=== PATIENT | male | born 1950 | race Two or more races ===

== ENCOUNTER 2016-04-10 10:08 | Inpatient (IN) | payer MEDICAID ==
[~2016-04-10] VITALS: Ht 162.6 cm; Wt 72.6 kg
[~2016-04-10 10:08] MED LIST: ARTANE2 MG ORAL; BACITRACIN1 APPLIC TOPIC; BACTRIM-DS1 EA ORAL; CLINDAMYCIN HC150 MG ORAL; ECOTRIN81 MG ORAL; FUROSEMIDE40 MG ORAL; HYDROCODON-ACE1 EA15 ORAL; LACTULOSE20 GM/301 ORAL; LEVAQUIN500 MG ORAL; NKM; SINEMET 10/100 T1 EA ORAL; TRAMADOL HCL50 MG ORAL; TRIHEXYPHENIDYL2 MG ORAL; TYLENOL650 MG/20. ORAL
[2016-04-10] MEDS ORDERED: Norco 5mg/325mg tab ORAL ONE (11:00)
--- NOTE | 2016-04-10 11:04 | Emergency Room Report ---
History of Present Illness General Chief Complaint: Pain Source: Patient, EMS Present Illness HPI Patient presents with complaint of pain in his legs, not relieved with normal medications. The patient is a history of Parkinson's and takes carbidopa, levodopa, aspirin, trihexyphenidyl daily. He states he doesn't have a primary care doctor, but is been to [facility] and this facility in the past, he knows doctors Bonniedanielavalentin by name, he he denies falls, but he denies burning pain in bilateral legs. He presents with discharge paperwork from a [facility] facility which she was recently discharged with, and has prescriptions which she has not filled of the above-mentioned medications. Allergies: Coded Allergies: No Known Allergies (Unverified , 06/28/14) Patient History Past Medical History: see triage record, old chart reviewed, other - Parkinson' s Social History: Denies: alcohol use, drug use, smoking Immunizations: UTD Reviewed Nursing Documentation: PMH: Agreed Nursing Documentation-PMH Past Medical History: No History, Except For Hx Hypertension: Yes Hx Pacemaker: No Hx Asthma: No Hx COPD: No Hx Diabetes: No Hx Cancer: No Hx Gastrointestinal Problems: No Hx Dialysis: No Hx Neurological Problems: Yes - Parkinson disease Hx Cerebrovascular Accident: No Hx Parkinson's Disease: Yes Hx Seizures: No Hx Tremors: Yes - right hand tremors Hx Dizziness: Yes Hx Syncope: Yes Hx Weakness: Yes Hx Fatigue: Yes Hx Neurologic Surgery: No Review of Systems Neurological: Reports: paresthesia, tingling All Other Systems: negative except mentioned in HPI Physical Exam Vital Signs Date Time Temp Pulse Resp B/P Pulse Ox O2 Delivery O2 Flow Rate FiO2 04/10/16 10:04 98.1 88 18 113/66 99 Room Air Sp02 EP Interpretation: reviewed, normal General Appearance: alert, GCS 15, mild distress Head: atraumatic Eyes: bilateral eye normal inspection ENT: normal ENT inspection, hearing grossly normal, normal voice Neck: normal inspection, full range of motion, supple, no bony tend Respiratory: normal inspection, lungs clear, normal breath sounds, no respiratory distress, no retraction, no wheezing Cardiovascular #1: regular rate, rhythm, no edema Gastrointestinal: normal inspection, normal bowel sounds, non tender, soft, no guarding, no hernia Genitourinary: no CVA tenderness Musculoskeletal: normal inspection, back normal, normal range of motion Neurologic: normal inspection, alert, responsive, speech normal Psychiatric: judgement/insight normal Skin: no rash, other - patient has significant signs of chronic jason stasis on bilateral legs, no ulcers Medical Decision Making Diagnostic Impression: Primary Impression: Pain Additional Impressions: Bilateral lower extremity edema Lymphedema Parkinson disease, symptomatic Parkinson disease Decreased ambulation status ER Course Patient here with complaint of bilateral leg pain, history of bilateral edema, Parkinson's disease for symptomatic features. We'll have social work assist in possibly obtaining a PCP referral. The patient is 68 is probably eligible for Medicare Medicaid. And does obtain medications. He has prescriptions for his medications which he needs to fill. I will provide a short course of [place] and some gabapentin for additional treatment for his pain. And I will put Dr. Andrews as a referral for him to contact his seat may also seek him out his primary care physician. Patient seen by social work, patient attempted to ambulate but was unable to. He was given [place] initially which did not relieve his pain and required to lot at to further improve his pain symptoms. I contacted Dr. Andrews who agrees with admission for failure to thrive, worsening parkinsons and social issues. Laboratory Tests Test 04/10/16 12:21 White Blood Count 4.4 K/UL (4.8-10.8) L Red Blood Count 4.78 M/UL (4.70-6.10) Hemoglobin 14.6 G/DL (14.2-18.0) Hematocrit 42.1 % (42.0-52.0) Mean Corpuscular Volume 88 FL (80-99) Mean Corpuscular Hemoglobin 30.6 PG (27.0-31.0) Mean Corpuscular Hemoglobin Concent 34.8 G/DL (32.0-36.0) Red Cell Distribution Width 11.6 % (11.6-14.8) Platelet Count 169 K/UL (150-450) Mean Platelet Volume 7.6 FL (6.5-10.1) Neutrophils (%) (Auto) 65.3 % (45.0-75.0) Lymphocytes (%) (Auto) 24.2 % (20.0-45.0) Monocytes (%) (Auto) 8.7 % (1.0-10.0) Eosinophils (%) (Auto) 1.1 % (0.0-3.0) Basophils (%) (Auto) 0.7 % (0.0-2.0) Sodium Level 137 mEQ/L (135-145) Potassium Level 4.0 mEQ/L (3.4-4.9) Chloride Level 98 mEQ/L (98-107) Carbon Dioxide Level 24 mEQ/L (20-30) Anion Gap 15 (5-15) Blood Urea Nitrogen 13 mg/dL (7-23) Creatinine 0.7 mg/dL (0.7-1.2) Estimat Glomerular Filtration Rate > 60 mL/min (>60) Glucose Level 133 mg/dL (74-106) H Calcium Level 9.0 mg/dL (8.6-10.2) Total Bilirubin 0.7 mg/dL (0.0-1.2) Aspartate Amino Transf (AST/SGOT) 39 U/L (5-40) Alanine Aminotransferase (ALT/SGPT) 30 U/L (3-41) Alkaline Phosphatase 94 U/L (40-129) Total Protein 7.1 g/dL (6.6-8.7) Albumin 4.2 g/dL (3.5-5.2) Globulin 2.9 g/dL Albumin/Globulin Ratio 1.4 (1.0-2.7) Thyroid Stimulating Hormone (TSH) 1.510 uIU/mL (0.300-4.500) Serum Alcohol < 10 mg/dL Reevaluation Time: 11:03 Last Vital Signs Date Time Temp Pulse Resp B/P Pulse Ox O2 Delivery O2 Flow Rate FiO2 04/10/16 10:04 98.1 88 18 113/66 99 Room Air Status: improved Disposition: ADMITTED INPATIENT Admit Decision Time: 13:00 Condition: Stable Scripts Gabapentin* (GABAPENTIN*) 300 Mg Capsule 300 MG ORAL BEDTIME, #30 CAP Prov: Moises Mclean MD 04/10/16 Hydrocodone Bit/Acetaminophen 5-325* (NORCO 5-325*) 1 Each Tablet 1 TAB ORAL Q6H Y for For Pain, #20 TAB 0 Refills Prov: Moises Mclean MD 04/10/16 Referrals: NOT CHOSEN IPA/,REFERRING (PCP) Moises Mclean MD Apr 10, 2016 11:04
[2016-04-10] MEDS ORDERED: GABAPENTIN300 MG ORAL (11:05)
[2016-04-10] MEDS ORDERED: NORCO 5-325 TA1 EACH ORAL (11:05)
[2016-04-10] MEDS ORDERED: HYDROmorphone 1 MG, DiphenhydrAMINE 25 MG in NS 55 ML IVPB ONE (12:15)
[2016-04-10] MEDS ORDERED: DiphenhydrAMINE 50mg/ml Inj ONE (12:21)
[2016-04-10] MEDS ORDERED: HYDROmorphone 1mg/ml Carpuject ONE (12:21)
[2016-04-10 12:39] LABS: BASOPHILS % (AUTO) 0.7 % (0.0-2.0); EOSINOPHILS % (AUTO) 1.1 % (0.0-3.0); LYMPHOCYTES % (AUTO) 24.2 % (20.0-45.0); MEAN CORPUSCULAR HEMOGLOBIN 30.6 PG (27.0-31.0); MEAN CORPUSCULAR HGB CONC 34.8 G/DL (32.0-36.0); MEAN CORPUSCULAR VOLUME 88 FL (80-99); MEAN PLATELET VOLUME 7.6 FL (6.5-10.1); MONOCYTES % (AUTO) 8.7 % (1.0-10.0); NEUTROPHILS % (AUTO) 65.3 % (45.0-75.0); PLATELET COUNT 169 K/UL (150-450); RED BLOOD COUNT 4.78 M/UL (4.70-6.10); RED CELL DISTRIBUTION WIDTH 11.6 % (11.6-14.8); WHITE BLOOD COUNT 4.4 K/UL (4.8-10.8)
[2016-04-10 12:48] LABS: ALANINE AMINOTRANSFERASE 30 U/L (3-41); ALBUMIN/GLOBULIN RATIO 1.4 (1.0-2.7); ALCOHOL < 10 mg/dL; ANION GAP 15 (5-15); ASPARTATE AMINO TRANSFERASE 39 U/L (5-40); CARBON DIOXIDE 24 mEQ/L (20-30); CHLORIDE 98 mEQ/L (98-107); CREATININE 0.7 mg/dL (0.7-1.2); GLOMERULAR FILTRATION RATE > 60 mL/min (>60); HEMOLYSIS 10; SODIUM 137 mEQ/L (135-145); TOTAL PROTEIN 7.1 g/dL (6.6-8.7)
[2016-04-10] MEDS ORDERED: Zolpidem 5mg tab ORAL PRN (13:00)
[2016-04-10] MEDS ORDERED: SINEMET ORAL SCH ×2 (13:00→17:00)
[2016-04-10] MEDS ORDERED: Miralax 17gm pkt ORAL PRN ×2 (13:00→14:15)
[2016-04-10] MEDS ORDERED: Morphine Sulfate 2mg/ml Inj IVP PRN (13:00)
[2016-04-10] MEDS ORDERED: Mylanta II UD 30ml ORAL PRN ×2 (13:00→14:15)
[2016-04-10] MEDS ORDERED: Norco 5mg/325mg tab ORAL PRN ×2 (13:00→14:15)
[2016-04-10] MEDS ORDERED: LORazepam Inj 2mg/ml 1ml IV PRN ×2 (13:00→14:15)
[2016-04-10 13:49] VITALS: BP 114/78
[2016-04-10 16:26] VITALS: BP 95/62
--- NOTE | 2016-04-10 17:09 | History and Physical ---
History of Present Illness General Date patient seen: Apr 10, 2016 Reason for Hospitalization: Pain Present Illness HPI 66 year old patient with hx of Parkinson disease presented with complaint of pain in his legs, not relieved with normal medications. He is complaining of increasing weakness in bilateral legs. He was just discharged from a [facility] facility. Allergies: Coded Allergies: No Known Allergies (Unverified , 06/28/14) Medication History Scheduled Aspirin (Ecotrin), 81 MG ORAL DAILY Bacitracin (Bacitracin Zinc), 1 APPLIC TOPIC BID Clindamycin Hcl* (Clindamycin Hcl*), 450 MG ORAL TID Furosemide* (Lasix*), 40 MG ORAL DAILY Gabapentin* (Gabapentin*), 300 MG ORAL BEDTIME Levodopa/Carbidopa (Carbidopa-Levodopa 10-100 Tab), 1 EA ORAL THREE TIMES A DAY Levodopa/Carbidopa (Carbidopa-Levodopa 10-100 Tab), 1 TAB ORAL THREE TIMES A DAY , (Reported) Levofloxacin* (Levaquin*), 500 MG ORAL DAILY No Known Medications* (NKM - No Known Medications*), 0 ., (Reported) Trihexyphenidyl HCl (Trihexyphenidyl HCl), 1 MG ORAL THREE TIMES A DAY Trihexyphenidyl Hcl* (Artane*), 2 MG ORAL TID, (Reported) Trimethoprim/Sulfamethoxazole (Bactrim Ds Tablet), 1 TAB ORAL TWICE A DAY Scheduled PRN Acetaminophen (Acetaminophen), 650 MG ORAL Q6H PRN for Prn Headache/Temp > 101 Hydrocodone Bit/Acetaminophen 5-325* ([place] 5-325*), 1 TAB ORAL Q6H PRN for For Pain Hydrocodone/Acetaminophen 5-325* (Hydrocodone/Acetaminophen 5-325*), 1 TAB ORAL Q6H PRN for For Pain Lactulose (Lactulose*), 30 ML ORAL BID PRN for Constipation Tramadol Hcl* (Ultram*), 50 MG ORAL Q6H PRN for For Pain Patient History Healthcare decision maker Resuscitation status Advanced Directive on File Past Medical/Surgical History Past Medical/Surgical History: (1) Acute encephalopathy (2) Parkinson disease, symptomatic Review of Systems All Other Systems: negative except mentioned in HPI Physical Exam Lines, tubes and drains: peripheral, central line HEENT: normocephalic, atraumatic Neck: non-tender, normal alignment Respiratory/Chest: chest wall non-tender, lungs clear Breasts: no masses Cardiovascular/Chest: normal peripheral pulses, regular rhythm Abdomen: normal bowel sounds, non tender Genitourinary/Rectal: normal genital exam Last 24 Hour Vital Signs Date Time Temp Pulse Resp B/P Pulse Ox O2 Delivery O2 Flow Rate FiO2 04/10/16 16:26 97.9 63 18 95/62 99 Room Air 04/10/16 13:54 98.0 04/10/16 13:54 98.0 04/10/16 13:50 98.1 87 18 114/78 99 Room Air 04/10/16 13:49 87 18 114/78 99 Room Air 04/10/16 10:04 98.1 88 18 113/66 99 Room Air Laboratory Tests Test 04/10/16 12:21 White Blood Count 4.4 K/UL (4.8-10.8) L Red Blood Count 4.78 M/UL (4.70-6.10) Hemoglobin 14.6 G/DL (14.2-18.0) Hematocrit 42.1 % (42.0-52.0) Mean Corpuscular Volume 88 FL (80-99) Mean Corpuscular Hemoglobin 30.6 PG (27.0-31.0) Mean Corpuscular Hemoglobin Concent 34.8 G/DL (32.0-36.0) Red Cell Distribution Width 11.6 % (11.6-14.8) Platelet Count 169 K/UL (150-450) Mean Platelet Volume 7.6 FL (6.5-10.1) Neutrophils (%) (Auto) 65.3 % (45.0-75.0) Lymphocytes (%) (Auto) 24.2 % (20.0-45.0) Monocytes (%) (Auto) 8.7 % (1.0-10.0) Eosinophils (%) (Auto) 1.1 % (0.0-3.0) Basophils (%) (Auto) 0.7 % (0.0-2.0) Sodium Level 137 mEQ/L (135-145) Potassium Level 4.0 mEQ/L (3.4-4.9) Chloride Level 98 mEQ/L (98-107) Carbon Dioxide Level 24 mEQ/L (20-30) Anion Gap 15 (5-15) Blood Urea Nitrogen 13 mg/dL (7-23) Creatinine 0.7 mg/dL (0.7-1.2) Estimat Glomerular Filtration Rate > 60 mL/min (>60) Glucose Level 133 mg/dL (74-106) H Calcium Level 9.0 mg/dL (8.6-10.2) Total Bilirubin 0.7 mg/dL (0.0-1.2) Aspartate Amino Transf (AST/SGOT) 39 U/L (5-40) Alanine Aminotransferase (ALT/SGPT) 30 U/L (3-41) Alkaline Phosphatase 94 U/L (40-129) Total Protein 7.1 g/dL (6.6-8.7) Albumin 4.2 g/dL (3.5-5.2) Globulin 2.9 g/dL Albumin/Globulin Ratio 1.4 (1.0-2.7) Thyroid Stimulating Hormone (TSH) 1.510 uIU/mL (0.300-4.500) Serum Alcohol < 10 mg/dL Height (Feet): 5 Height (Inches): 4.00 Weight (Pounds): 160 Medications Current Medications Medications (Trade) Dose Ordered Sig/Naren Route PRN Reason Start Time Stop Time Status Last Admin Dose Admin Acetaminophen (Tylenol) 650 mg Q4H PRN ORAL fever 04/10/16 14:15 05/10/16 12:59 Acetaminophen/ Hydrocodone Bitart ([place] 5/325) 1 tab Q6H PRN ORAL Moderate Pain (Pain Scale 4-6) 04/10/16 14:15 04/17/16 12:59 Al Hydroxide/Mg Hydroxide (Mylanta II) 30 ml Q6H PRN ORAL dyspepsia 04/10/16 14:15 05/10/16 12:59 Carbidopa/Levodopa (Sinemet 10/100) 1 ea THREE TIMES A DAY ORAL 04/10/16 17:00 05/10/16 16:59 Dextrose (Dextrose 50%) STAT PRN IV Hypoglycemia 04/10/16 14:15 05/10/16 12:59 Furosemide (Lasix) 40 mg DAILY ORAL 04/11/16 09:00 05/11/16 08:59 Heparin Sodium (Porcine) (Heparin 5000 units/ml) 5,000 units EVERY 12 HOURS SUBQ 04/10/16 21:00 05/10/16 20:59 Lorazepam (Ativan 2mg/ml 1ml) 0.5 mg Q4H PRN IV For Anxiety 04/10/16 14:15 04/17/16 12:59 Morphine Sulfate (Morphine Sulfate) 1 mg Q4H PRN IVP Severe Pain (Pain Scale 7-10) 04/10/16 14:15 04/17/16 14:14 Ondansetron HCl (Zofran) 4 mg Q6H PRN IVP Nausea & Vomiting 04/10/16 14:15 05/10/16 12:59 Polyethylene Glycol (Miralax) 17 gm HSPRN PRN ORAL Constipation 04/10/16 14:15 05/10/16 12:59 Zolpidem Tartrate (Ambien) 5 mg HSPRN PRN ORAL Insomnia 04/10/16 14:15 05/10/16 12:59 Assessment/Plan Problem List: (1) Acute encephalopathy ICD Codes: G93.40 - Encephalopathy, unspecified SNOMED: 7017645 (2) Debility ICD Codes: R53.81 - Other malaise SNOMED: 38175169 (3) Impaired mobility and ADLs ICD Codes: Z74.09 - Other reduced mobility SNOMED: 09682961, 922617755 (4) Parkinson disease, symptomatic ICD Codes: G20 - Parkinson disease, symptomatic SNOMED: 344104281 Assessment/Plan pt/ot neuro evaluation social service evaluation TIA GALVEZ Apr 10, 2016 17:09
[2016-04-10 18:01] VITALS: BP 145/71
[2016-04-10 20:17] VITALS: BP 95/58
[2016-04-10] MEDS ORDERED: Heparin 5000 units/ml inj SUBQ SCH (21:00)
[2016-04-10] MEDS ORDERED: Trihexyphenidyl 2mg tab ORAL SCH (21:00)
[2016-04-10] MEDS: Morphine Sulfate 2mg/ml Inj IVP PRN (21:03)
[2016-04-10] MEDS: Heparin 5000 units/ml inj SUBQ SCH (21:06)
[2016-04-11] VITALS: BP 118/61
[2016-04-11 04:00] VITALS: BP 110/63
[2016-04-11] MEDS ORDERED: Trihexyphenidyl 2mg tab ORAL SCH (06:00)
[2016-04-11 06:27] LABS: BASOPHILS % (AUTO) 1.5 % (0.0-2.0); LYMPHOCYTES % (AUTO) 39.1 % (20.0-45.0); MEAN CORPUSCULAR HGB CONC 34.8 G/DL (32.0-36.0); MEAN CORPUSCULAR VOLUME 89 FL (80-99); MEAN PLATELET VOLUME 7.7 FL (6.5-10.1); MONOCYTES % (AUTO) 10.4 % (1.0-10.0); NEUTROPHILS % (AUTO) 47.1 % (45.0-75.0); PLATELET COUNT 150 K/UL (150-450); RED BLOOD COUNT 4.48 M/UL (4.70-6.10); RED CELL DISTRIBUTION WIDTH 11.6 % (11.6-14.8); WHITE BLOOD COUNT 3.5 K/UL (4.8-10.8)
[2016-04-11 07:01] LABS: HEMOGLOBIN A1C 4.7 % (< 6.0)
[2016-04-11 07:15] LABS: ALANINE AMINOTRANSFERASE 41 U/L (3-41); ALBUMIN/GLOBULIN RATIO 1.7 (1.0-2.7); ANION GAP 13 (5-15); ASPARTATE AMINO TRANSFERASE 29 U/L (5-40); CALCIUM 9.3 mg/dL (8.6-10.2); CARBON DIOXIDE 27 mEQ/L (20-30); CHLORIDE 101 mEQ/L (98-107); CHOLESTEROL 144 mg/dL (< 200); CHOLESTEROL/HDL RATIO 1.8 (3.3-4.4); CREATININE 0.7 mg/dL (0.7-1.2); GLOMERULAR FILTRATION RATE > 60 mL/min (>60); HEMOLYSIS 9; LDL CHOLESTEROL (CALC.) 52 mg/dL (60-99); POTASSIUM 3.7 mEQ/L (3.4-4.9); SODIUM 141 mEQ/L (135-145); TOTAL PROTEIN 6.6 g/dL (6.6-8.7)
[2016-04-11 07:29] LABS: BILIRUBIN,DIRECT 0.2 mg/dL (0.1-0.3)
[2016-04-11 08:00] VITALS: BP 104/68
[2016-04-11] MEDS: SINEMET ORAL SCH ×3 (08:06→17:37)
[2016-04-11] MEDS: Furosemide 40mg tab ORAL SCH (08:07)
[2016-04-11] MEDS: TRIHEXYPHENIDYL ORAL SCH ×3 (08:07→17:38)
[2016-04-11] MEDS: Heparin 5000 units/ml inj SUBQ SCH ×2 (08:08→20:55)
[2016-04-11 08:53] LABS: APPEARANCE,URINE CLEAR; KETONES,URINE 1+ (NEGATIVE); LEUKOCYTE ESTERASE ,URINE NEGATIVE (NEGATIVE); NITRITE,URINE NEGATIVE (NEGATIVE); PH,URINE 6.5 (4.5-8.0); PROTEIN,URINE NEGATIVE (NEGATIVE); UROBILINOGEN,URINE 1 MG/DL (0.0-1.0)
[2016-04-11] MEDS ORDERED: Furosemide 40mg tab ORAL SCH (09:00)
[2016-04-11] MEDS ORDERED: NS 55ml IV ONE (10:38)
[2016-04-11 12:00] VITALS: BP 96/55
--- NOTE | 2016-04-11 15:41 | Wound Care Consultation ---
Wound Assessment Wound Assessment : Wound Present on Admission: Yes New Wound: No Status Change of Wound: No Wound Location Body Site Modif: right, lower, posterior Wound Location Body Site: leg Wound Type: scab Luis Angel Test: Does not Luis Angel Wound Thickness: Full Thickness Wound Length: 3.0 Wound Width: 2.0 Wound Depth: utd Percent of Wound Bed Yellow/Wh: 50 Percent of Wound Black/Brown: 50 Wound Drainage Amount: None Wound Drainage Odor: None/Absent Tissue Surrounding Wound: Erythemic Wound General Appearance: Asymptomatic Wound Comment #1 right posterior leg dry scab #2 both lower legs cellulitis with dry flaky skin Recommendation -Keep clean and dry -Elevate both legs -Offload both heels -Apply A&D ointment on BLE and leave area open to air -Optimize nutrition -Assess and f/u accordingly for any changes ILIR LOUIS RN Apr 11, 2016 15:41
[2016-04-11 16:00] VITALS: BP 102/64
[2016-04-11 20:14] VITALS: BP 107/62
[2016-04-11] MEDS: Zolpidem 5mg tab ORAL PRN (23:59)
[2016-04-12 00:59] VITALS: BP 114/70
[2016-04-12 04:44] VITALS: BP 101/65
[2016-04-12] MEDS: SINEMET ORAL SCH ×4 (06:38→21:34)
[2016-04-12] MEDS: Trihexyphenidyl 2mg tab ORAL SCH ×3 (06:42→17:49)
[2016-04-12] MEDS: Furosemide 40mg tab ORAL SCH (08:36)
[2016-04-12] MEDS: Heparin 5000 units/ml inj SUBQ SCH ×2 (08:37→21:37)
[2016-04-12 08:55] VITALS: BP 104/63
[2016-04-12 12:47] VITALS: BP 104/63
--- NOTE | 2016-04-12 13:15 | Neurology Progress Note ---
Objective Physical Exam Last Vital Signs Date Time Temp Pulse Resp B/P Pulse Ox O2 Delivery O2 Flow Rate FiO2 04/12/16 12:47 97.0 64 20 104/63 100 04/12/16 08:55 Room Air Impression/Recommendations Problems: (1) myalgia BLE (2) Parkinson disease, symptomatic (3) Venous stasis ulcers Status: stable Recommendations #[id number] JORDEN JACKSON Apr 12, 2016 13:15
[2016-04-12] MEDS: Magnesium Oxide 400mg tab ORAL SCH ×2 (14:12→17:49)
[2016-04-12 16:00] VITALS: BP 119/63
--- NOTE | 2016-04-12 16:44 | Pulmonology Progress Note ---
Assessment/Plan Problems: (1) Acute encephalopathy (2) Debility (3) Impaired mobility and ADLs (4) Parkinson disease, symptomatic Assessment/Plan improving neuro evaluation pt/ot home safety evaluation wound care Subjective Interval Events: late note 04/11: doing better, Allergies: Coded Allergies: No Known Allergies (Unverified , 06/28/14) Objective Last 24 Hour Vital Signs Date Time Temp Pulse Resp B/P Pulse Ox O2 Delivery O2 Flow Rate FiO2 04/12/16 12:47 97.0 64 20 104/63 100 04/12/16 08:55 97.7 78 20 104/63 97 Room Air 04/12/16 04:44 98.1 65 20 101/65 99 Room Air 04/12/16 00:59 97.7 67 18 114/70 99 Room Air 04/11/16 20:14 97.3 19 107/62 100 Room Air Intake and Output 04/11/16 04/12/16 19:00 07:00 Intake Total 480 ml 875 ml Balance 480 ml 875 ml Intake Oral 480 ml 875 ml # Voids 2 5 # Bowel Movements 1 General Appearance: WD/WN HEENT: normocephalic, atraumatic Respiratory/Chest: chest wall non-tender, lungs clear Cardiovascular: normal peripheral pulses, normal rate Abdomen: normal bowel sounds, soft, non tender Genitourinary: normal external genitalia 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 Microbiology Date/Time Source Procedure Growth Status 04/10/16 22:30 Leg Left Gram Stain - Final Resulted 04/10/16 22:30 Leg Left Wound Culture - Preliminary NO GROWTH AFTER 24 HOURS Resulted Laboratory Tests 04/12/16 14:45: Total Creatine Kinase 67, Total Protein (PEP) [Pending], Albumin (PEP) [Pending] , Globulin (PEP) [Pending], Albumin/Globulin Ratio [Pending], Zyuxf-1-Ovwpqdzmh [Pending], Ojsnl-2-Hrfvhfmjr [Pending], Beta Globulins [Pending], Beta Gamma Globulin [Pending], PEP Abnormal Protein Bands [Pending], Protein Electrophoresis Interpret [Pending], Anti-Nuclear Antibody Screen [Pending] Current Medications Medications (Trade) Dose Ordered Sig/Naren Route PRN Reason Start Time Stop Time Status Last Admin Dose Admin Acetaminophen (Tylenol) 650 mg Q4H PRN ORAL fever 04/10/16 14:15 05/10/16 12:59 Acetaminophen/ Hydrocodone Bitart ([place] 5/325) 1 tab Q6H PRN ORAL Moderate Pain (Pain Scale 4-6) 04/10/16 14:15 04/17/16 12:59 04/10/16 17:59 Al Hydroxide/Mg Hydroxide (Mylanta II) 30 ml Q6H PRN ORAL dyspepsia 04/10/16 14:15 05/10/16 12:59 Carbidopa/Levodopa (Sinemet 10/100) 1 ea QID ORAL 04/12/16 18:00 05/12/16 17:59 Dextrose (Dextrose 50%) STAT PRN IV Hypoglycemia 04/10/16 14:15 05/10/16 12:59 Furosemide (Lasix) 40 mg DAILY ORAL 04/11/16 09:00 05/11/16 08:59 04/12/16 08:36 Heparin Sodium (Porcine) (Heparin 5000 units/ml) 5,000 units EVERY 12 HOURS SUBQ 04/10/16 21:00 05/10/16 20:59 04/12/16 08:37 Lorazepam (Ativan 2mg/ml 1ml) 0.5 mg Q4H PRN IV For Anxiety 04/10/16 14:15 04/17/16 12:59 04/10/16 22:59 Magnesium Oxide (Mag-Ox 400mg) 400 mg THREE TIMES A DAY ORAL 04/12/16 14:00 05/12/16 13:59 04/12/16 14:12 Morphine Sulfate (Morphine Sulfate) 1 mg Q4H PRN IVP Severe Pain (Pain Scale 7-10) 04/10/16 14:15 04/17/16 14:14 04/10/16 21:03 Ondansetron HCl (Zofran) 4 mg Q6H PRN IVP Nausea & Vomiting 04/10/16 14:15 05/10/16 12:59 Polyethylene Glycol (Miralax) 17 gm HSPRN PRN ORAL Constipation 04/10/16 14:15 05/10/16 12:59 Pramipexole (Mirapex) 0.125 mg TID ORAL 04/12/16 18:00 05/12/16 17:59 Trihexyphenidyl HCl (Artane) 2 mg TID@0600,1300,1800 ORAL 04/12/16 06:00 05/12/16 05:59 04/12/16 13:09 Zolpidem Tartrate (Ambien) 5 mg HSPRN PRN ORAL Insomnia 04/10/16 14:15 05/10/16 12:59 04/11/16 23:59 TIA GALVEZ Apr 12, 2016 16:44
--- NOTE | 2016-04-12 16:57 | Pulmonology Progress Note ---
Assessment/Plan Problems: (1) Acute encephalopathy (2) Debility (3) Impaired mobility and ADLs (4) Parkinson disease, symptomatic Assessment/Plan improving neuro evaluation pt/ot home safety evaluation wound care social service consult for home safety. Subjective ROS Limited/Unobtainable: No Interval Events: no new complains, doens't want to go home Constitutional: Reports: no symptoms Allergies: Coded Allergies: No Known Allergies (Unverified , 06/28/14) Objective Last 24 Hour Vital Signs Date Time Temp Pulse Resp B/P Pulse Ox O2 Delivery O2 Flow Rate FiO2 04/12/16 12:47 97.0 64 20 104/63 100 04/12/16 08:55 97.7 78 20 104/63 97 Room Air 04/12/16 04:44 98.1 65 20 101/65 99 Room Air 04/12/16 00:59 97.7 67 18 114/70 99 Room Air 04/11/16 20:14 97.3 19 107/62 100 Room Air Intake and Output 04/11/16 04/12/16 19:00 07:00 Intake Total 480 ml 875 ml Balance 480 ml 875 ml Intake Oral 480 ml 875 ml # Voids 2 5 # Bowel Movements 1 Objective General Appearance: WD/WN HEENT: normocephalic, atraumatic Respiratory/Chest: chest wall non-tender, lungs clear Cardiovascular: normal peripheral pulses, normal rate Abdomen: normal bowel sounds, soft, non tender Genitourinary: normal external genitalia 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 Microbiology Date/Time Source Procedure Growth Status 04/10/16 22:30 Leg Left Gram Stain - Final Resulted 04/10/16 22:30 Leg Left Wound Culture - Preliminary NO GROWTH AFTER 24 HOURS Resulted Laboratory Tests 04/12/16 14:45: Total Creatine Kinase 67, Total Protein (PEP) [Pending], Albumin (PEP) [Pending] , Globulin (PEP) [Pending], Albumin/Globulin Ratio [Pending], Qnkcd-3-Wzndooeii [Pending], Franl-6-Dpqwoifvg [Pending], Beta Globulins [Pending], Beta Gamma Globulin [Pending], PEP Abnormal Protein Bands [Pending], Protein Electrophoresis Interpret [Pending], Anti-Nuclear Antibody Screen [Pending] Current Medications Medications (Trade) Dose Ordered Sig/Naren Route PRN Reason Start Time Stop Time Status Last Admin Dose Admin Acetaminophen (Tylenol) 650 mg Q4H PRN ORAL fever 04/10/16 14:15 05/10/16 12:59 Acetaminophen/ Hydrocodone Bitart ([place] 5/325) 1 tab Q6H PRN ORAL Moderate Pain (Pain Scale 4-6) 04/10/16 14:15 04/17/16 12:59 04/10/16 17:59 Al Hydroxide/Mg Hydroxide (Mylanta II) 30 ml Q6H PRN ORAL dyspepsia 04/10/16 14:15 05/10/16 12:59 Carbidopa/Levodopa (Sinemet 10/100) 1 ea QID ORAL 04/12/16 18:00 05/12/16 17:59 Dextrose (Dextrose 50%) STAT PRN IV Hypoglycemia 04/10/16 14:15 05/10/16 12:59 Furosemide (Lasix) 40 mg DAILY ORAL 04/11/16 09:00 05/11/16 08:59 04/12/16 08:36 Heparin Sodium (Porcine) (Heparin 5000 units/ml) 5,000 units EVERY 12 HOURS SUBQ 04/10/16 21:00 05/10/16 20:59 04/12/16 08:37 Lorazepam (Ativan 2mg/ml 1ml) 0.5 mg Q4H PRN IV For Anxiety 04/10/16 14:15 04/17/16 12:59 04/10/16 22:59 Magnesium Oxide (Mag-Ox 400mg) 400 mg THREE TIMES A DAY ORAL 04/12/16 14:00 05/12/16 13:59 04/12/16 14:12 Morphine Sulfate (Morphine Sulfate) 1 mg Q4H PRN IVP Severe Pain (Pain Scale 7-10) 04/10/16 14:15 04/17/16 14:14 04/10/16 21:03 Ondansetron HCl (Zofran) 4 mg Q6H PRN IVP Nausea & Vomiting 04/10/16 14:15 05/10/16 12:59 Polyethylene Glycol (Miralax) 17 gm HSPRN PRN ORAL Constipation 04/10/16 14:15 05/10/16 12:59 Pramipexole (Mirapex) 0.125 mg TID ORAL 04/12/16 18:00 05/12/16 17:59 Trihexyphenidyl HCl (Artane) 2 mg TID@0600,1300,1800 ORAL 04/12/16 06:00 05/12/16 05:59 04/12/16 13:09 Zolpidem Tartrate (Ambien) 5 mg HSPRN PRN ORAL Insomnia 04/10/16 14:15 05/10/16 12:59 04/11/16 23:59 TIA GALVEZ Apr 12, 2016 16:57
--- NOTE | 2016-04-12 19:00 | Consultation ---
DATE OF CONSULTATION: 04/12/2016 NEUROLOGICAL CONSULTATION: CONSULTING PHYSICIAN: James More M.D. ATTENDING PHYSICIAN: Frandy Andrews M.D. REQUESTING PHYSICIAN: Frandy Andrews M.D. HISTORY OF PRESENT ILLNESS: This is a 66-year-old man seen in neurological consultation to evaluate progressive pain in his both lower extremities predominantly both thighs. The patient noticed that the pain started about a year ago. Since then, progressive but intermittent. The patient also noticed that after using Sinemet with Artane, the pain subsides for another couple of hours and then resumes again. There was Tylenol tried and Copeland, both of them were not helpful for pain management. Pain becomes intractable and he was sent into emergency room. His admission vital signs were stable. He was afebrile. Laboratory work that was obtained with normal CBC study, negative toxicology panel, and urinalysis 1+ ketones, chemistry panel with normal TSH and lipid panel. Blood sugar 133, otherwise normal study. His hematology panel was unremarkable with mild anemia, hemoglobin 13.9 and hematocrit 39. The patient's most recent admission was in January 2016, addressed issue of increasing weakness and pain in his left lower extremity, decreased in ambulation. There was evidence of lymphedema in both lower extremities. MEDICATIONS: Following current admission, the patient continued with the usual treatment including furosemide, gabapentin 300 mg at bedtime, Copeland one tablet t.i.d. p.r.n., levodopa/carbidopa 10/100 t.i.d., and Artane 2 mg t.i.d. ALLERGIES: None reported. SOCIAL HISTORY: The patient lives with his friends. He is using cane for ambulation. He denies alcohol or drug abuse. Nonsmoker. FAMILY HISTORY: Noncontributory. REVIEW OF SYMPTOMS: Aches and pains in his both lower extremities predominantly both thighs, recurrent cellulitis of both lower extremities with residual swelling. He denies any other major medical problems, although admits previously being depressed currently without evidence of depression but often insomnia. Denies chest pain or palpitations. No respiratory difficulties. Denies abdominal pain or discomfort. No urine or bowel incontinence. PHYSICAL EXAMINATION: GENERAL: This is a well-developed, well-nourished, pleasant man, not in acute distress, sitting in a chair. VITAL SIGNS: His vital signs are stable. Blood pressure 118/82, respirations 14, and temperature 98.1. HEENT: Head normocephalic. There is no evidence of injuries. Eyes, ears, nose, and throat are clear. NECK: Supple. No meningeal signs. MUSCULOSKELETAL: There is significant skin discoloration, swelling, and skin deformities in both lower extremities below knees. VASCULAR: Peripheral pulses 1+ and symmetric. NEUROLOGIC: MENTAL STATUS: He is fully alert and oriented x3 with no evidence of aphasia. No apraxia. Cognition is normal. CRANIAL NERVE II: Pupils both responding to light and accommodation. Extraocular movements intact. No nystagmus. CRANIAL NERVE V: Normal corneal responses. CRANIAL NERVE VII: No facial asymmetry. Poor facial expression. CRANIAL NERVE VIII: Normal hearing. CRANIAL NERVE IX THROUGH XII: Tongue is in midline. Symmetric palate elevation. MOTOR EXAMINATION: Diffuse rigidity, bradykinesia, resting tremor of both upper extremities. Deep tendon reflexes 1+ bilaterally and symmetric. Plantar responses flexor. SENSORY EXAMINATION: Decreased response to pin stimulation in both feet. GAIT: Slow, shuffling, using cane. IMPRESSION: 1. Chronic bilateral lower extremity myalgia, most likely due to increased muscle tone, rule out myositis, doubt presence of polyneuropathy, doubt presence of lumbar spinal stenosis. 2. Parkinson disease. 3. Status post recurrent both lower extremity cellulitis. 4. Insomnia. RECOMMENDATION: I will increase Sinemet up to 10/100 q.i.d., start on Mirapex 0.25 mg t.i.d., and continue with Artane 2 mg t.i.d. Muscle relaxants at times may help with myalgia and we will put him on p.r.n. Flexeril 10 mg t.i.d. as needed. We will supplement for magnesium oxide. Thank you for allowing me to see this interesting patient in neurological consultation. Jmaes More M.D. DR: Gregg JOB#: [id number] CC:
[2016-04-12 20:00] VITALS: BP 96/60
[2016-04-12] MEDS: Zolpidem 5mg tab ORAL PRN (21:40)
[2016-04-13] VITALS: BP 91/53
[2016-04-13 04:00] VITALS: BP 96/58
[2016-04-13] MEDS: Trihexyphenidyl 2mg tab ORAL SCH ×3 (06:58→17:22)
[2016-04-13] MEDS: SINEMET ORAL SCH ×4 (06:58→21:14)
[2016-04-13 08:27] VITALS: BP 103/65
[2016-04-13] MEDS: Magnesium Oxide 400mg tab ORAL SCH ×3 (09:00→17:24)
[2016-04-13] MEDS: Heparin 5000 units/ml inj SUBQ SCH ×2 (09:00→21:00)
[2016-04-13] MEDS: Furosemide 40mg tab ORAL SCH (09:00)
[2016-04-13 09:22] LABS: A/G RATIO 1.5 (0.7-1.7); ABNORMAL PROTEIN BAND 1 Not Observed g/dL (Not Observed); ALPHA-1 GLOBULIN 0.2 g/dL (0.0-0.4); ALPHA-2 GLOBULIN 0.5 g/dL (0.4-1.0); BETA GLOBULIN 0.9 g/dL (0.7-1.3); GAMMA GLOBULIN 1.1 g/dL (0.4-1.8); GLOBULIN, TOTAL 2.7 g/dL (2.2-3.9); TOTAL PROTEIN 6.7 g/dL (6.0-8.5)
--- NOTE | 2016-04-13 12:27 | Pulmonology Progress Note ---
Assessment/Plan Assessment/Plan ASSESSMENT chronic BLE myalgia likely due to increased muscle tome,. r/o myositis, acute encephalopathy Parkinson disease , symptomatic Lymphedema Hx of recurrent BLE cellulitis decreased mobility 2 to Parkinson disease PLAN OF CARE [facility] floor neuro follows increased Sinemet, started on Mirapex, continue Artane pain management, added muscle relaxant continue Lasix, monitor renal parameters, lytes, Mg supplements fall precautions PT/OT DVT prophylaxis bowel regimen lipid panel and TSH WNL additional workup pending: HORACIO, SPEP, wound care nurse eval appreciated continue skin care as per recommendations no evidence of cellulitis SS for evaluation for home safety case discussed and evaluated by supervising physician Subjective Allergies: Coded Allergies: No Known Allergies (Unverified , 06/28/14) Subjective afebrile, no leucocytosis on RA, pule oximetry stable working with PT Objective Last 24 Hour Vital Signs Date Time Temp Pulse Resp B/P Pulse Ox O2 Delivery O2 Flow Rate FiO2 04/13/16 08:27 97.9 72 19 103/65 98 Room Air 04/13/16 04:00 97.7 66 20 96/58 95 Room Air 04/13/16 00:00 96.9 64 20 91/53 97 Room Air 04/12/16 20:00 97.0 96 20 96/60 99 Room Air 04/12/16 16:00 96.8 62 20 119/63 99 Room Air 04/12/16 12:47 97.0 64 20 104/63 100 Intake and Output 04/12/16 04/13/16 19:00 07:00 Intake Total 360 ml 600 ml Balance 360 ml 600 ml Intake Oral 360 ml 600 ml # Voids 2 2 General Appearance: no acute distress HEENT: anicteric, mucous membranes moist, PERRL Respiratory/Chest: lungs clear - with moderate air entry , no respiratory distress, no accessory muscle use Cardiovascular: normal rate, no JVD Abdomen: soft, non tender, non distended Genitourinary: normal external genitalia Extremities: other - trace edema BLE , BLE with evidence of chron ic venous stasis, Neurologic/Psychiatric: abnormal gait - ambulates with cane , alert, oriented x 3, responsive Microbiology Date/Time Source Procedure Growth Status 04/10/16 22:30 Leg Left Gram Stain - Final Resulted 04/10/16 22:30 Leg Left Wound Culture - Preliminary NO GROWTH AFTER 48 HOURS Resulted Laboratory Tests 04/12/16 14:45: Total Creatine Kinase 67, Total Protein (PEP) 6.7, Albumin (PEP) 4.0, Globulin ( PEP) 2.7, Albumin/Globulin Ratio 1.5, Svqrb-0-Tzmlcrksq 0.2, Wlpgw-0-Sznpdnwrr 0.5, Beta Globulins 0.9, Beta Gamma Globulin 1.1, PEP Abnormal Protein Bands Not observed, Protein Electrophoresis Interpret Comment, Anti-Nuclear Antibody Screen [Pending] Current Medications Medications (Trade) Dose Ordered Sig/Naren Route PRN Reason Start Time Stop Time Status Last Admin Dose Admin Acetaminophen (Tylenol) 650 mg Q4H PRN ORAL fever 04/10/16 14:15 05/10/16 12:59 Acetaminophen/ Hydrocodone Bitart ([place] 5/325) 1 tab Q6H PRN ORAL Moderate Pain (Pain Scale 4-6) 04/10/16 14:15 04/17/16 12:59 04/10/16 17:59 Al Hydroxide/Mg Hydroxide (Mylanta II) 30 ml Q6H PRN ORAL dyspepsia 04/10/16 14:15 05/10/16 12:59 Carbidopa/Levodopa (Sinemet 10/100) 1 ea 0600,1300,1800,2100 ORAL 04/13/16 06:00 05/13/16 05:59 04/13/16 06:58 Dextrose (Dextrose 50%) STAT PRN IV Hypoglycemia 04/10/16 14:15 05/10/16 12:59 Furosemide (Lasix) 40 mg DAILY ORAL 04/11/16 09:00 05/11/16 08:59 04/13/16 09:00 Heparin Sodium (Porcine) (Heparin 5000 units/ml) 5,000 units EVERY 12 HOURS SUBQ 04/10/16 21:00 05/10/16 20:59 04/12/16 21:37 Lorazepam (Ativan 2mg/ml 1ml) 0.5 mg Q4H PRN IV For Anxiety 04/10/16 14:15 04/17/16 12:59 04/10/16 22:59 Magnesium Oxide (Mag-Ox 400mg) 400 mg THREE TIMES A DAY ORAL 04/12/16 14:00 05/12/16 13:59 04/13/16 09:00 Morphine Sulfate (Morphine Sulfate) 1 mg Q4H PRN IVP Severe Pain (Pain Scale 7-10) 04/10/16 14:15 04/17/16 14:14 04/10/16 21:03 Ondansetron HCl (Zofran) 4 mg Q6H PRN IVP Nausea & Vomiting 04/10/16 14:15 05/10/16 12:59 Polyethylene Glycol (Miralax) 17 gm HSPRN PRN ORAL Constipation 04/10/16 14:15 05/10/16 12:59 Pramipexole (Mirapex) 0.125 mg TID ORAL 04/12/16 18:00 05/12/16 17:59 04/13/16 09:01 Trihexyphenidyl HCl (Artane) 2 mg TID@0600,1300,1800 ORAL 04/12/16 06:00 05/12/16 05:59 04/13/16 06:58 Zolpidem Tartrate (Ambien) 5 mg HSPRN PRN ORAL Insomnia 04/10/16 14:15 05/10/16 12:59 04/12/16 21:40 Cody KeysAlvina garcia NP Apr 13, 2016 12:27
--- NOTE | 2016-04-13 12:39 | Neurology Progress Note ---
Interim History Interim History ROS Limited/Unobtainable: No Complaints: aches BLE Events: stable Objective Physical Exam Last Vital Signs Date Time Temp Pulse Resp B/P Pulse Ox O2 Delivery O2 Flow Rate FiO2 04/13/16 08:27 97.9 72 19 103/65 98 Room Air Laboratory Tests Test 04/12/16 14:45 Total Creatine Kinase 67 U/L (38-174) Total Protein (PEP) 6.7 g/dL (6.0-8.5) Albumin (PEP) 4.0 g/dL (2.9-4.4) Globulin (PEP) 2.7 g/dL (2.2-3.9) Albumin/Globulin Ratio 1.5 (0.7-1.7) Jqhwz-3-Vnbcajhll 0.2 g/dL (0.0-0.4) Zstuw-9-Qqoswiawb 0.5 g/dL (0.4-1.0) Beta Globulins 0.9 g/dL (0.7-1.3) Beta Gamma Globulin 1.1 g/dL (0.4-1.8) PEP Abnormal Protein Bands Not observed g/dL (Not Protein Electrophoresis Interpret Comment (.) Anti-Nuclear Antibody Screen Pending General: well developed, no acute distress Head: normocophalic Neurologic Exam Mental Status: awake, alert, oriented x4, normal cognition, good mathematical skills, normal recent memory, normal remote memory, preserved visuospatial function Speech: normal speech, no dysarthia, other - hypophonic Language: normal language, no aphasia Cranial Nerve II: fundus normal, visual [place], no papilledema Cranial Nerves III, IV, : PERRLA, EOMI, pupils Cranial Nerve V: normal facial sensations, temporales function normal, masseters function normal, pterygoids function normal Cranial Nerve VII: no facial asymmetry, other - masked Cranial Nerve VIII: normal hearing, no nystagmus Cranial Nerve IX: normal palate elevation, gag response Cranial Nerve X: no voice hoarseness Cranial Nerve XI: SCM symmetric, trapezii function normal Cranial Nerve XII: tongue midline, no tongue atrophy/fasciculations Motor System: strength 5/5, no muscle wasting, other - rigidity cogwheel, bradykinesia, resting tremor Sensory: normal pinprick, normal light touch, normal position sense, normal graphesthesia Coordination: normal finger to nose bilaterally, normal heel to sykes bilaterally, negative Romberg test Deep Tendon Reflexes: 1+ ankle (L), 1+ ankle (R), 1+ bicep (L), 1+ bicep (R), 1 + brachioradialis (L), 1+ brachioradialis (R), 1+ knee (L), 1+ knee (R), 1+ tricep (L), 1+ tricep (R), 2+ ankle (L), 2+ ankle (R), 2+ bicep (L), 2+ bicep (R ), 2+ brachioradialis (L), 2+ brachioradialis (R), 2+ knee (L), 2+ knee (R), 2+ tricep (L), 2+ tricep (R) Stance: normal Gait: stable, normal regular, heel + toe gait Impression/Recommendations Problems: (1) myalgia BLE (2) Parkinson disease, symptomatic (3) Venous stasis ulcers Status: stable Recommendations #[id number] qid neuro stable ok d/c planning f/u by neuro JORDEN ROBLES Apr 13, 2016 12:39
[2016-04-13 12:41] VITALS: BP 104/63
[2016-04-13] MEDS ORDERED: Cyclobenzaprine 10mg Tab ORAL PRN (12:45)
[2016-04-13 16:00] VITALS: BP 115/71
[2016-04-13 20:00] VITALS: BP 93/56
[2016-04-13] MEDS: Zolpidem 5mg tab ORAL PRN (21:16)
[2016-04-14 00:55] VITALS: BP 89/52
[2016-04-14 04:00] VITALS: BP 90/56
[2016-04-14] MEDS: SINEMET ORAL SCH ×4 (06:00→21:00)
[2016-04-14] MEDS: Trihexyphenidyl 2mg tab ORAL SCH ×3 (06:29→17:12)
[2016-04-14 08:00] VITALS: BP 121/70
[2016-04-14] MEDS: Heparin 5000 units/ml inj SUBQ SCH ×2 (09:00→21:00)
[2016-04-14] MEDS: Furosemide 40mg tab ORAL SCH (09:41)
[2016-04-14] MEDS: Magnesium Oxide 400mg tab ORAL SCH ×3 (09:42→17:12)
[2016-04-14 12:00] VITALS: BP 123/82
--- NOTE | 2016-04-14 15:14 | Pulmonology Progress Note ---
Assessment/Plan Assessment/Plan ASSESSMENT chronic BLE myalgia likely due to increased muscle tome,. r/o myositis, acute encephalopathy Parkinson disease , symptomatic Lymphedema Hx of recurrent BLE cellulitis decreased mobility 2 to Parkinson disease PLAN OF CARE [facility] floor neuro follows increased Sinemet, started on Mirapex, continue Artane pain management, added muscle relaxant continue Lasix, monitor renal parameters, lytes, Mg supplements fall precautions PT/OT DVT prophylaxis bowel regimen lipid panel and TSH WNL HORACIO, SPEP-negative , wound care nurse eval appreciated continue skin care as per recommendations no evidence of cellulitis neuro cleared for dc SS for evaluation for home safety dc plan case discussed and evaluated by supervising physician Subjective Allergies: Coded Allergies: No Known Allergies (Unverified , 06/28/14) Subjective afebrile, no leucocytosis on RA, pulse oximetry stable working with PT Objective Last 24 Hour Vital Signs Date Time Temp Pulse Resp B/P Pulse Ox O2 Delivery O2 Flow Rate FiO2 04/14/16 12:00 97.7 18 123/82 96 Room Air 04/14/16 08:00 97.3 70 19 121/70 100 Room Air 04/14/16 04:00 97.7 59 20 90/56 98 Room Air 04/14/16 00:55 98.1 66 20 89/52 97 Room Air 04/13/16 20:00 97.7 62 20 93/56 98 Room Air 04/13/16 16:00 97.7 74 20 115/71 100 Room Air Intake and Output 04/13/16 04/14/16 19:00 07:00 Intake Total 360 ml 780 ml Output Total 400 ml 600 ml Balance -40 ml 180 ml Intake Oral 360 ml 780 ml Output Urine Total 400 ml 600 ml # Voids 2 2 Objective General Appearance: no acute distress HEENT: anicteric, mucous membranes moist, PERRL Respiratory/Chest: lungs clear - with moderate air entry , no respiratory distress, no accessory muscle use Cardiovascular: normal rate, no JVD Abdomen: soft, non tender, non distended Genitourinary: normal external genitalia Extremities: other - trace edema BLE , BLE with evidence of chronic venous stasis, Neurologic/Psychiatric: abnormal gait - ambulates with cane , alert, oriented x 3, responsive Current Medications Medications (Trade) Dose Ordered Sig/Naren Route PRN Reason Start Time Stop Time Status Last Admin Dose Admin Acetaminophen (Tylenol) 650 mg Q4H PRN ORAL fever 04/10/16 14:15 05/10/16 12:59 Acetaminophen/ Hydrocodone Bitart ([place] 5/325) 1 tab Q6H PRN ORAL Moderate Pain (Pain Scale 4-6) 04/10/16 14:15 04/17/16 12:59 04/10/16 17:59 Al Hydroxide/Mg Hydroxide (Mylanta II) 30 ml Q6H PRN ORAL dyspepsia 04/10/16 14:15 05/10/16 12:59 Carbidopa/Levodopa (Sinemet 10/100) 1 ea 0600,1300,1800,2100 ORAL 04/13/16 06:00 05/13/16 05:59 04/14/16 11:40 Cyclobenzaprine HCl (Flexeril) 10 mg BEDTIME PRN ORAL muscle ache 04/13/16 12:45 05/13/16 12:44 Dextrose (Dextrose 50%) STAT PRN IV Hypoglycemia 04/10/16 14:15 05/10/16 12:59 Furosemide (Lasix) 40 mg DAILY ORAL 04/11/16 09:00 05/11/16 08:59 04/14/16 09:41 Heparin Sodium (Porcine) (Heparin 5000 units/ml) 5,000 units EVERY 12 HOURS SUBQ 04/10/16 21:00 05/10/16 20:59 04/12/16 21:37 Lorazepam (Ativan 2mg/ml 1ml) 0.5 mg Q4H PRN IV For Anxiety 04/10/16 14:15 04/17/16 12:59 04/10/16 22:59 Magnesium Oxide (Mag-Ox 400mg) 400 mg THREE TIMES A DAY ORAL 04/12/16 14:00 05/12/16 13:59 04/14/16 13:57 Morphine Sulfate (Morphine Sulfate) 1 mg Q4H PRN IVP Severe Pain (Pain Scale 7-10) 04/10/16 14:15 04/17/16 14:14 04/10/16 21:03 Ondansetron HCl (Zofran) 4 mg Q6H PRN IVP Nausea & Vomiting 04/10/16 14:15 05/10/16 12:59 Polyethylene Glycol (Miralax) 17 gm HSPRN PRN ORAL Constipation 04/10/16 14:15 05/10/16 12:59 Pramipexole (Mirapex) 0.125 mg TID ORAL 04/12/16 18:00 05/12/16 17:59 04/14/16 13:57 Trihexyphenidyl HCl (Artane) 2 mg TID@0600,1300,1800 ORAL 04/12/16 06:00 05/12/16 05:59 04/14/16 11:40 Zolpidem Tartrate (Ambien) 5 mg HSPRN PRN ORAL Insomnia 04/10/16 14:15 05/10/16 12:59 04/13/16 21:16 Cody ([facility])Alvina NP Apr 14, 2016 15:14
[2016-04-14 16:00] VITALS: BP 112/66
[2016-04-14] MEDS: Morphine Sulfate 2mg/ml Inj IVP PRN (19:40)
[2016-04-14 20:00] VITALS: BP 126/67
[2016-04-14] MEDS: Zolpidem 5mg tab ORAL PRN (22:18)
[2016-04-15] VITALS: BP 123/59
[2016-04-15 04:00] VITALS: BP 102/53
[2016-04-15] MEDS: Trihexyphenidyl 2mg tab ORAL SCH ×3 (06:24→17:05)
[2016-04-15] MEDS: SINEMET ORAL SCH ×4 (06:25→21:21)
[2016-04-15 08:15] VITALS: BP 117/62
[2016-04-15] MEDS: Furosemide 40mg tab ORAL SCH (08:59)
[2016-04-15] MEDS: Magnesium Oxide 400mg tab ORAL SCH ×3 (08:59→17:05)
[2016-04-15] MEDS: Heparin 5000 units/ml inj SUBQ SCH ×2 (09:04→21:00)
[2016-04-15 12:15] VITALS: BP 137/62
--- NOTE | 2016-04-15 12:38 | Pulmonology Progress Note ---
Assessment/Plan Assessment/Plan ASSESSMENT chronic BLE myalgia likely due to increased muscle tome,. r/o myositis, acute encephalopathy Parkinson disease , symptomatic Lymphedema Hx of recurrent BLE cellulitis decreased mobility 2 to Parkinson disease PLAN OF CARE [facility] floor neuro follows increased Sinemet, started on Mirapex, continue Artane pain management, added muscle relaxant continue Lasix, monitor renal parameters, lytes, Mg supplements fall precautions PT/OT DVT prophylaxis bowel regimen lipid panel and TSH WNL HORACIO, SPEP-negative , wound care nurse eval appreciated continue skin care as per recommendations no evidence of cellulitis neuro cleared for dc SS for evaluation for home safety dc plan for am case discussed and evaluated by supervising physician Subjective Allergies: Coded Allergies: No Known Allergies (Unverified , 06/28/14) Subjective afebrile, no leucocytosis on RA, pulse oximetry stable working with PT Objective Last 24 Hour Vital Signs Date Time Temp Pulse Resp B/P Pulse Ox O2 Delivery O2 Flow Rate FiO2 04/15/16 12:15 98.6 79 20 137/62 95 Room Air 04/15/16 08:15 98.6 74 19 117/62 99 Room Air 04/15/16 04:00 97.7 63 20 102/53 99 Room Air 04/15/16 00:00 97.3 69 20 123/59 97 Room Air 04/14/16 20:00 97.9 69 20 126/67 100 Room Air 04/14/16 16:00 97.5 65 18 112/66 100 Room Air Intake and Output 04/14/16 04/15/16 19:00 07:00 Intake Total 800 ml 340 ml Balance 800 ml 340 ml Intake Oral 800 ml 340 ml # Voids 2 Objective General Appearance: no acute distress HEENT: anicteric, mucous membranes moist, PERRL Respiratory/Chest: lungs clear - with moderate air entry , no respiratory distress, no accessory muscle use Cardiovascular: normal rate, no JVD Abdomen: soft, non tender, non distended Genitourinary: normal external genitalia Extremities: other - trace edema BLE , BLE with evidence of chronic venous stasis, Neurologic/Psychiatric: abnormal gait - ambulates with cane , alert, oriented x 3, responsive Current Medications Medications (Trade) Dose Ordered Sig/Naren Route PRN Reason Start Time Stop Time Status Last Admin Dose Admin Acetaminophen (Tylenol) 650 mg Q4H PRN ORAL fever 2/28/17 14:15 05/10/16 12:59 Acetaminophen/ Hydrocodone Bitart ([place] 5/325) 1 tab Q6H PRN ORAL Moderate Pain (Pain Scale 4-6) 04/10/16 14:15 04/17/16 12:59 04/10/16 17:59 Al Hydroxide/Mg Hydroxide (Mylanta II) 30 ml Q6H PRN ORAL dyspepsia 04/10/16 14:15 05/10/16 12:59 Carbidopa/Levodopa (Sinemet 10/100) 1 ea 0600,1300,1800,2100 ORAL 04/13/16 06:00 05/13/16 05:59 04/15/16 12:04 Cyclobenzaprine HCl (Flexeril) 10 mg BEDTIME PRN ORAL muscle ache 04/13/16 12:45 05/13/16 12:44 Dextrose (Dextrose 50%) STAT PRN IV Hypoglycemia 04/10/16 14:15 05/10/16 12:59 Furosemide (Lasix) 40 mg DAILY ORAL 04/11/16 09:00 05/11/16 08:59 04/15/16 08:59 Heparin Sodium (Porcine) (Heparin 5000 units/ml) 5,000 units EVERY 12 HOURS SUBQ 04/10/16 21:00 05/10/16 20:59 04/15/16 09:04 Lorazepam (Ativan 2mg/ml 1ml) 0.5 mg Q4H PRN IV For Anxiety 04/10/16 14:15 04/17/16 12:59 04/10/16 22:59 Magnesium Oxide (Mag-Ox 400mg) 400 mg THREE TIMES A DAY ORAL 04/12/16 14:00 05/12/16 13:59 04/15/16 12:03 Morphine Sulfate (Morphine Sulfate) 1 mg Q4H PRN IVP Severe Pain (Pain Scale 7-10) 04/10/16 14:15 04/17/16 14:14 04/14/16 19:40 Ondansetron HCl (Zofran) 4 mg Q6H PRN IVP Nausea & Vomiting 04/10/16 14:15 05/10/16 12:59 Polyethylene Glycol (Miralax) 17 gm HSPRN PRN ORAL Constipation 04/10/16 14:15 05/10/16 12:59 Pramipexole (Mirapex) 0.125 mg TID ORAL 04/12/16 18:00 05/12/16 17:59 04/15/16 12:04 Trihexyphenidyl HCl (Artane) 2 mg TID@0600,1300,1800 ORAL 04/12/16 06:00 05/12/16 05:59 04/15/16 12:04 Zolpidem Tartrate (Ambien) 5 mg HSPRN PRN ORAL Insomnia 04/10/16 14:15 05/10/16 12:59 04/14/16 22:18 [facility] ([facility])Alvina NP Apr 15, 2016 12:38
[2016-04-15 13:23] LABS: ANION GAP 14 (5-15); CALCIUM 9.5 mg/dL (8.6-10.2); CARBON DIOXIDE 29 mEQ/L (20-30); CHLORIDE 97 mEQ/L (98-107); CREATININE 0.9 mg/dL (0.7-1.2); GLOMERULAR FILTRATION RATE > 60 mL/min (>60); HEMOLYSIS 20; SODIUM 140 mEQ/L (135-145)
[2016-04-15 16:16] VITALS: BP 104/61
[2016-04-15 20:00] VITALS: BP 96/59
[2016-04-15] MEDS: Zolpidem 5mg tab ORAL PRN (22:08)
[2016-04-16] VITALS: BP 97/57
[2016-04-16 04:00] VITALS: BP 101/58
[2016-04-16] MEDS: SINEMET ORAL SCH ×4 (06:19→21:51)
[2016-04-16] MEDS: Trihexyphenidyl 2mg tab ORAL SCH ×3 (06:32→17:00)
[2016-04-16 07:15] LABS: MEAN CORPUSCULAR HEMOGLOBIN 30.8 PG (27.0-31.0); MEAN CORPUSCULAR HGB CONC 34.1 G/DL (32.0-36.0); MEAN CORPUSCULAR VOLUME 90 FL (80-99); MEAN PLATELET VOLUME 8.4 FL (6.5-10.1); PLATELET COUNT 144 K/UL (150-450); RED BLOOD COUNT 4.49 M/UL (4.70-6.10); RED CELL DISTRIBUTION WIDTH 12.1 % (11.6-14.8); WHITE BLOOD COUNT 3.2 K/UL (4.8-10.8)
[2016-04-16 08:10] VITALS: BP 104/64
[2016-04-16 08:14] LABS: BAND NEUTROPHILS % (MANUAL) 0 % (0-8); BASOPHILS % (MANUAL) 0 % (0-2); EOSINOPHILS % (MANUAL) 3 % (0-3); LYMPHOCYTES % (MANUAL) 44 % (20-45); NEUTROPHILS % (MANUAL) 49 % (45-75); PLATELET ESTIMATE DECREASED; PLATELET MORPHOLOGY NORMAL; TOTAL CELLS COUNTED 100
[2016-04-16] MEDS: Magnesium Oxide 400mg tab ORAL SCH ×3 (08:52→16:59)
[2016-04-16] MEDS: Heparin 5000 units/ml inj SUBQ SCH ×2 (08:53→20:41)
[2016-04-16] MEDS: Furosemide 40mg tab ORAL SCH (08:57)
[2016-04-16 11:26] VITALS: BP 107/65
[2016-04-16] MEDS ORDERED: SINEMET 10/100 T1 EA ORAL (13:31)
[2016-04-16 16:00] VITALS: BP 119/68
--- NOTE | 2016-04-16 16:40 | Pulmonology Progress Note ---
Assessment/Plan Problems: (1) Acute encephalopathy (2) Debility (3) Impaired mobility and ADLs (4) Parkinson disease, symptomatic Assessment/Plan doesnt' want to go home wants to be placed for short term improving neuro evaluation pt/ot home safety evaluation Subjective ROS Limited/Unobtainable: No Constitutional: Reports: no symptoms HEENT: Repors: no symptoms Allergies: Coded Allergies: No Known Allergies (Unverified , 06/28/14) Objective Last 24 Hour Vital Signs Date Time Temp Pulse Resp B/P Pulse Ox O2 Delivery O2 Flow Rate FiO2 04/16/16 11:26 97.8 72 19 107/65 100 Room Air 04/16/16 08:10 98.2 74 19 104/64 100 Room Air 04/16/16 04:00 97.7 60 18 101/58 99 Room Air 04/16/16 00:00 97.8 60 18 97/57 98 Room Air 04/15/16 20:00 98.2 60 19 96/59 97 Room Air Intake and Output 04/15/16 04/16/16 19:00 07:00 Intake Total 880 ml 200 ml Balance 880 ml 200 ml Intake Oral 880 ml 200 ml # Voids 2 3 Objective General Appearance: WD/WN HEENT: normocephalic, atraumatic Respiratory/Chest: chest wall non-tender, lungs clear Cardiovascular: normal peripheral pulses, normal rate Abdomen: normal bowel sounds, soft, non tender Genitourinary: normal external genitalia Neurologic/Psychiatric: front end software developer II-XII grossly normal Laboratory Tests 04/16/16 06:25: White Blood Count 3.2L, Red Blood Count 4.49L, Hemoglobin 13.8L, Hematocrit 40.6L, Mean Corpuscular Volume 90, Mean Corpuscular Hemoglobin 30.8, Mean Corpuscular Hemoglobin Concent 34.1, Red Cell Distribution Width 12.1, Platelet Count 144L, Mean Platelet Volume 8.4, Neutrophils (%) (Auto) , Lymphocytes (%) ( Auto) , Monocytes (%) (Auto) , Eosinophils (%) (Auto) , Basophils (%) (Auto) , Differential Total Cells Counted 100, Neutrophils % (Manual) 49, Lymphocytes % ( Manual) 44, Monocytes % (Manual) 4, Eosinophils % (Manual) 3, Basophils % ( Manual) 0, Band Neutrophils 0, Platelet Estimate DecreasedL, Platelet Morphology Normal, Red Blood Cell Morphology Normal Current Medications Medications (Trade) Dose Ordered Sig/Naren Route PRN Reason Start Time Stop Time Status Last Admin Dose Admin Acetaminophen (Tylenol) 650 mg Q4H PRN ORAL fever 04/10/16 14:15 05/10/16 12:59 Acetaminophen/ Hydrocodone Bitart ([place] 5/325) 1 tab Q6H PRN ORAL Moderate Pain (Pain Scale 4-6) 04/10/16 14:15 04/17/16 12:59 04/10/16 17:59 Al Hydroxide/Mg Hydroxide (Mylanta II) 30 ml Q6H PRN ORAL dyspepsia 04/10/16 14:15 05/10/16 12:59 Carbidopa/Levodopa (Sinemet 10/100) 1 ea 0600,1300,1800,2100 ORAL 04/13/16 06:00 05/13/16 05:59 04/16/16 12:05 Cyclobenzaprine HCl (Flexeril) 10 mg BEDTIME PRN ORAL muscle ache 04/13/16 12:45 05/13/16 12:44 Dextrose (Dextrose 50%) STAT PRN IV Hypoglycemia 04/10/16 14:15 05/10/16 12:59 Furosemide (Lasix) 40 mg DAILY ORAL 04/11/16 09:00 05/11/16 08:59 04/16/16 08:57 Heparin Sodium (Porcine) (Heparin 5000 units/ml) 5,000 units EVERY 12 HOURS SUBQ 04/10/16 21:00 05/10/16 20:59 04/15/16 09:04 Lorazepam (Ativan 2mg/ml 1ml) 0.5 mg Q4H PRN IV For Anxiety 04/10/16 14:15 04/17/16 12:59 04/10/16 22:59 Magnesium Oxide (Mag-Ox 400mg) 400 mg THREE TIMES A DAY ORAL 04/12/16 14:00 05/12/16 13:59 04/16/16 13:07 Morphine Sulfate (Morphine Sulfate) 1 mg Q4H PRN IVP Severe Pain (Pain Scale 7-10) 04/10/16 14:15 04/17/16 14:14 04/14/16 19:40 Ondansetron HCl (Zofran) 4 mg Q6H PRN IVP Nausea & Vomiting 04/10/16 14:15 05/10/16 12:59 Polyethylene Glycol (Miralax) 17 gm HSPRN PRN ORAL Constipation 04/10/16 14:15 05/10/16 12:59 Pramipexole (Mirapex) 0.125 mg TID ORAL 04/12/16 18:00 05/12/16 17:59 04/16/16 12:05 Trihexyphenidyl HCl (Artane) 2 mg TID@0600,1300,1800 ORAL 04/12/16 06:00 05/12/16 05:59 04/16/16 12:05 Zolpidem Tartrate (Ambien) 5 mg HSPRN PRN ORAL Insomnia 04/10/16 14:15 05/10/16 12:59 04/15/16 22:08 TIA GALVEZ Apr 16, 2016 16:40
[2016-04-16 20:00] VITALS: BP 112/67
[2016-04-16] MEDS: Zolpidem 5mg tab ORAL PRN (21:53)
[2016-04-17] VITALS: BP 93/52
[2016-04-17 04:00] VITALS: BP 98/56
[2016-04-17] MEDS: SINEMET ORAL SCH ×4 (05:32→21:52)
[2016-04-17] MEDS: Trihexyphenidyl 2mg tab ORAL SCH ×3 (05:32→17:12)
[2016-04-17] MEDS: Heparin 5000 units/ml inj SUBQ SCH ×2 (07:56→21:00)
[2016-04-17] MEDS: Magnesium Oxide 400mg tab ORAL SCH ×3 (07:56→17:12)
[2016-04-17] MEDS: Furosemide 40mg tab ORAL SCH (07:56)
[2016-04-17 08:39] VITALS: BP 105/60
[2016-04-17 11:45] VITALS: BP 116/65
[2016-04-17 16:00] VITALS: BP 118/67
[2016-04-17 20:00] VITALS: BP 103/69
[2016-04-17] MEDS: Zolpidem 5mg tab ORAL PRN (21:52)
--- NOTE | 2016-04-17 23:07 | Pulmonology Progress Note ---
Assessment/Plan Problems: (1) Acute encephalopathy (2) Debility (3) Impaired mobility and ADLs (4) Parkinson disease, symptomatic Assessment/Plan doesnt' want to go home wants to be placed for short term improving neuro evaluation pt/ot home safety evaluation dc to alf for short term stay Subjective ROS Limited/Unobtainable: No Allergies: Coded Allergies: No Known Allergies (Unverified , 06/28/14) Objective Last 24 Hour Vital Signs Date Time Temp Pulse Resp B/P Pulse Ox O2 Delivery O2 Flow Rate FiO2 04/17/16 11:45 97.2 75 15 116/65 100 Room Air 04/17/16 08:39 97.9 70 15 105/60 100 Room Air 04/17/16 04:00 96.6 70 20 98/56 99 Room Air 04/17/16 00:00 97.3 62 20 93/52 98 Room Air Intake and Output 04/16/16 04/17/16 19:00 07:00 Intake Total 560 ml 800 ml Balance 560 ml 800 ml Intake Oral 560 ml 800 ml # Voids 3 4 # Bowel Movements 1 1 Objective General Appearance: WD/WN HEENT: normocephalic, atraumatic Respiratory/Chest: chest wall non-tender, lungs clear Cardiovascular: normal peripheral pulses, normal rate Abdomen: normal bowel sounds, soft, non tender Genitourinary: normal external genitalia 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 Current Medications Medications (Trade) Dose Ordered Sig/Naren Route PRN Reason Start Time Stop Time Status Last Admin Dose Admin Acetaminophen (Tylenol) 650 mg Q4H PRN ORAL fever 04/10/16 14:15 05/10/16 12:59 Al Hydroxide/Mg Hydroxide (Mylanta II) 30 ml Q6H PRN ORAL dyspepsia 04/10/16 14:15 05/10/16 12:59 Carbidopa/Levodopa (Sinemet 10/100) 1 ea 0600,1300,1800,2100 ORAL 04/13/16 06:00 05/13/16 05:59 04/17/16 21:52 Cyclobenzaprine HCl (Flexeril) 10 mg BEDTIME PRN ORAL muscle ache 04/13/16 12:45 05/13/16 12:44 Dextrose (Dextrose 50%) STAT PRN IV Hypoglycemia 04/10/16 14:15 05/10/16 12:59 Furosemide (Lasix) 40 mg DAILY ORAL 04/11/16 09:00 05/11/16 08:59 04/17/16 07:56 Heparin Sodium (Porcine) (Heparin 5000 units/ml) 5,000 units EVERY 12 HOURS SUBQ 04/10/16 21:00 05/10/16 20:59 04/15/16 09:04 Magnesium Oxide (Mag-Ox 400mg) 400 mg THREE TIMES A DAY ORAL 04/12/16 14:00 05/12/16 13:59 04/17/16 17:12 Ondansetron HCl (Zofran) 4 mg Q6H PRN IVP Nausea & Vomiting 04/10/16 14:15 05/10/16 12:59 Polyethylene Glycol (Miralax) 17 gm HSPRN PRN ORAL Constipation 04/10/16 14:15 05/10/16 12:59 Pramipexole (Mirapex) 0.125 mg TID ORAL 04/12/16 18:00 05/12/16 17:59 04/17/16 17:12 Trihexyphenidyl HCl (Artane) 2 mg TID@0600,1300,1800 ORAL 04/12/16 06:00 05/12/16 05:59 04/17/16 17:12 Zolpidem Tartrate (Ambien) 5 mg HSPRN PRN ORAL Insomnia 04/10/16 14:15 05/10/16 12:59 04/17/16 21:52 TIA GALVEZ Apr 17, 2016 23:07
[2016-04-18] VITALS (7 sets, daily range): BP systolic 88–117; BP diastolic 50–74
[2016-04-18] MEDS: SINEMET ORAL SCH ×3 (06:03→16:33)
[2016-04-18] MEDS: Trihexyphenidyl 2mg tab ORAL SCH ×3 (06:03→16:33)
[2016-04-18] MEDS: Furosemide 40mg tab ORAL SCH (08:27)
[2016-04-18] MEDS: Magnesium Oxide 400mg tab ORAL SCH ×3 (08:28→18:32)
[2016-04-18] MEDS: Heparin 5000 units/ml inj SUBQ SCH (08:28)
--- NOTE | 2016-04-18 15:59 | Wound Care Consultation ---
Wound Assessment Wound Assessment : Wound Present on Admission: Yes New Wound: No Status Change of Wound: No Wound Location Body Site Modif: right, lower, posterior Wound Location Body Site: leg Wound Type: scab - dry Luis Angel Test: Does not Luis Angel Wound Thickness: Full Thickness Wound Length: 0.5 Wound Width: 0.5 Wound Depth: utd Percent of Wound Black/Brown: 100 - dry scab Wound Drainage Amount: None Wound Drainage Odor: None/Absent Tissue Surrounding Wound: Intact Wound General Appearance: Clean/Dry Wound Comment upon reassessment noted good progress to right lower leg noted decrease in size , dry scab remains intact. noted good progress to both lower extremities cellulitis. noted decrease in redness, skin remains intact. AYDEN WARE Apr 18, 2016 15:59
--- NOTE | 2016-04-18 16:24 | Pulmonology Progress Note ---
Assessment/Plan Problems: (1) Acute encephalopathy (2) Debility (3) Impaired mobility and ADLs (4) Parkinson disease, symptomatic Assessment/Plan doesnt' want to go home wants to be placed for short term improving neuro evaluation pt/ot home safety evaluation [facility] Subjective ROS Limited/Unobtainable: No Allergies: Coded Allergies: No Known Allergies (Unverified , 06/28/14) Objective Last 24 Hour Vital Signs Date Time Temp Pulse Resp B/P Pulse Ox O2 Delivery O2 Flow Rate FiO2 04/18/16 11:41 98.2 70 18 105/64 98 Room Air 04/18/16 07:51 98.1 69 19 104/62 100 Room Air 04/18/16 04:30 117/74 04/18/16 04:00 97.5 61 20 88/50 98 Room Air 04/18/16 01:00 96/59 04/18/16 00:00 97.5 62 20 94/50 98 Room Air 04/17/16 20:00 98.2 66 18 103/69 99 Room Air Intake and Output 04/17/16 04/18/16 19:00 07:00 Intake Total 1000 ml 860 ml Balance 1000 ml 860 ml Intake Oral 1000 ml 860 ml # Voids 3 2 # Bowel Movements 1 Objective General Appearance: WD/WN HEENT: normocephalic, atraumatic Respiratory/Chest: chest wall non-tender, lungs clear Cardiovascular: normal peripheral pulses, normal rate Abdomen: normal bowel sounds, soft, non tender Genitourinary: normal external genitalia 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 Current Medications Medications (Trade) Dose Ordered Sig/Naren Route PRN Reason Start Time Stop Time Status Last Admin Dose Admin Acetaminophen (Tylenol) 650 mg Q4H PRN ORAL fever 04/10/16 14:15 05/10/16 12:59 Al Hydroxide/Mg Hydroxide (Mylanta II) 30 ml Q6H PRN ORAL dyspepsia 04/10/16 14:15 05/10/16 12:59 Carbidopa/Levodopa (Sinemet 10/100) 1 ea 0600,1300,1800,2100 ORAL 04/13/16 06:00 05/13/16 05:59 04/18/16 10:56 Cyclobenzaprine HCl (Flexeril) 10 mg BEDTIME PRN ORAL muscle ache 3/3/17 12:45 05/13/16 12:44 Dextrose (Dextrose 50%) STAT PRN IV Hypoglycemia 04/10/16 14:15 05/10/16 12:59 Furosemide (Lasix) 40 mg DAILY ORAL 04/11/16 09:00 05/11/16 08:59 04/18/16 08:27 Heparin Sodium (Porcine) (Heparin 5000 units/ml) 5,000 units EVERY 12 HOURS SUBQ 04/10/16 21:00 05/10/16 20:59 04/15/16 09:04 Magnesium Oxide (Mag-Ox 400mg) 400 mg THREE TIMES A DAY ORAL 04/12/16 14:00 05/12/16 13:59 04/18/16 10:57 Ondansetron HCl (Zofran) 4 mg Q6H PRN IVP Nausea & Vomiting 04/10/16 14:15 05/10/16 12:59 Polyethylene Glycol (Miralax) 17 gm HSPRN PRN ORAL Constipation 04/10/16 14:15 05/10/16 12:59 Pramipexole (Mirapex) 0.125 mg TID ORAL 04/12/16 18:00 05/12/16 17:59 04/18/16 10:54 Trihexyphenidyl HCl (Artane) 2 mg TID@0600,1300,1800 ORAL 04/12/16 06:00 05/12/16 05:59 04/18/16 11:01 Zolpidem Tartrate (Ambien) 5 mg HSPRN PRN ORAL Insomnia 04/10/16 14:15 05/10/16 12:59 04/17/16 21:52 TIA GALVEZ Apr 18, 2016 16:24
--- NOTE | 2016-04-19 20:56 | Discharge Summary ---
Discharge Summary Hospital Course Date of Admission Apr 10, 2016 at 12:23 Date of Discharge Apr 18, 2016 at 18:47 Admitting Diagnosis parkinsons disease exacerbation, failure to thrive JOSEFA Coleman is a 66 year old male who was admitted on Apr 10, 2016 at 12: 23 for Parkinsons Disease Exacerbation,Failure To Thrive Hospital Course [id number] Discharge Discharge Disposition Patient was discharged to SNF/Subacute Facility(03) Discharge Diagnoses: Martina Cain NP Apr 19, 2016 20:56
--- NOTE | 2016-04-20 01:58 | Discharge Summary 2 SIG ---
DATE OF ADMISSION: 04/10/2016 DATE OF DISCHARGE: 04/18/2016 SALES AND MARKETING MANAGER: James More M.D. BRIEF HOSPITAL COURSE: The patient is a 66-year-old male with history of Parkinson's disease, presented with complaints of pain in his legs not relieved with normal medications. He was complaining of increasing weakness in bilateral legs. He was just discharged from [facility]. Dr. More was consulted. The patient has chronic bilateral lower extremity myalgia, most likely due to increased muscle tone. Sinemet was increased and was started on Mirapex 0.25 mg b.i.d., and Artane 2 mg t.i.d. He was given Flexeril 10 mg p.r.n. and underwent physical therapy and occupational therapy. He came in with dry scabs on the right leg and was given A and D ointment. Social service was consulted to assess home safety. The patient would benefit from short-term placement and was eventually discharged to SNF. FINAL DIAGNOSES: 1. Acute metabolic encephalopathy. 2. Impaired mobility. 3. Parkinson's disease. 4. 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 5. Lymphedema. Frandy Andrews M.D. I have been assigned to dictate discharge summary on this account and I was not involved in the patient's management. Martina Cain N.P. DR: Jose JOB#: [id number] CC: SILVANA
== END 2016-04-18 18:47 | DRG 42 ==
LOC: EDBD 10:08 → EMR 10:47 → 4W 12:23 → EMR 14:03 → 4W 14:03 → 4E 04-14 08:54
DX: G20 Parkinson's disease (principal); G93.41 Metabolic encephalopathy; M79.1 Myalgia; R53.81 Other malaise; Z74.09 Other reduced mobility; I89.0 Lymphedema, not elsewhere classified; G47.00 Insomnia, unspecified; I87.2 Venous insufficiency (chronic) (peripheral)
CPT/HCPCS: 36415; 80048; 80053; 80061; 80329; 81003; 82248; 82550; 83036; 84165; 84443; 85007; 85025; 86039; 87070; 87205